=== PATIENT | male | born 2000 | race Caucasian/White ===

== ENCOUNTER 2019-06-22 12:24 | Inpatient (IN) | payer OTHER ==
[~2019-06-22] VITALS: Ht 182.9 cm; Wt 95.3 kg
[2019-06-22 12:28] VITALS: BP 115/62
[2019-06-22 12:52] LABS: CALCIUM 8.8 mg/dL (8.5-10.1); CREATININE 1.1 mg/dL (0.6-1.3); POTASSIUM 3.7 mmol/L (3.5-5.1)
[2019-06-22 12:57] LABS: ALBUMIN 4.6 g/dL (3.4-5.0); TOTAL BILIRUBIN 3.6 mg/dL (<0.1-1.0); TOTAL PROTEIN 7.8 g/dL (6.4-8.2)
[2019-06-22 14:27] VITALS: BP 127/70
[2019-06-22 20:35] VITALS: BP 104/41
[2019-06-23 04:29] LABS: HEMATOCRIT 40.6 % (42.0-52.0); HEMOGLOBIN 14.1 gm/dL (14.0-18.0); MCH 30.2 pg (26.0-34.0); MCHC 34.7 g/dL (28.0-37.0); MCV 86.9 fL (80.0-100.0); MPV 8.6 fl. (7.2-11.1); RBC 4.67 mil/uL (4.50-6.00); RDW-CV 12.7 % (10.5-14.5); WBC 10.8 thou/uL (4.0-11.0)
[2019-06-23 04:40] LABS: ALBUMIN 3.9 g/dL (3.4-5.0); POTASSIUM 3.7 mmol/L (3.5-5.1)
[2019-06-23 06:00] VITALS: BP 118/53
[2019-06-23 07:50] VITALS: BP 139/55
[2019-06-23] MEDS ORDERED: ASA81BEC PO (09:16)
[2019-06-23] MEDS ORDERED: NORCO 5-325 TA1 EAC1 PO (09:18)
[2019-06-23] MEDS ORDERED: KEFLEX500 M2 PO (09:19)
[2019-06-23 09:20] VITALS: BP 139/55
== END 2019-06-23 14:25 | disposition home or self-care (01) | DRG 512 ==
LOC: M.ERS 12:24 → M.3W 16:28
PROVIDERS: Personal Emergency Response Attendant; ADMIT Orthopaedic Surgery
PROC: 0PSL04Z Reposition Left Ulna with Internal Fixation Device, Open Approach (ICD-10-PCS; principal; 2019-06-22)
PROC: 0PSJ04Z Reposition Left Radius with Internal Fixation Device, Open Approach (ICD-10-PCS; principal; 2019-06-22)
PROC: 3E10X8Z Irrigation of Skin and Mucous Membranes using Irrigating Substance (ICD-10-PCS; 2019-06-22)
DX: S52.352B Displaced comminuted fracture of shaft of radius, left arm, initial encounter for open fracture type I or II (principal); S52.252B Displaced comminuted fracture of shaft of ulna, left arm, initial encounter for open fracture type I or II; V19.9XXA Pedal cyclist (driver) (passenger) injured in unspecified traffic accident, initial encounter; Y93.89 Activity, other specified; Y92.89 Other specified places as the place of occurrence of the external cause; Y99.8 Other external cause status; Z23 Encounter for immunization